=== PATIENT | male | born 1995 | race Caucasian/White ===

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

== ENCOUNTER 2023-01-06 23:54 | Outpatient (CLI) | payer BC | END 2023-01-06 23:59 | disposition EMS.NT | LOC: EMS 23:54 | DX: F41.9 Anxiety disorder, unspecified (principal) ==

== ENCOUNTER 2023-01-14 19:14 | Outpatient (CLI) | payer BC | END 2023-01-14 19:15 | disposition short-term general hospital (02) | LOC: EMS 19:14 | DX: R53.1 Weakness (principal); H53.9 Unspecified visual disturbance; R42 Dizziness and giddiness; R07.9 Chest pain, unspecified | CPT/HCPCS: A0425; A0429 ==

== ENCOUNTER 2023-03-07 18:30 | Outpatient (CLI) | payer BC | END 2023-03-07 18:31 | disposition EMS.NT | LOC: EMS 18:30 | DX: F41.9 Anxiety disorder, unspecified (principal) ==

== ENCOUNTER 2023-07-31 19:03 | Emergency (ER) | payer BC, MEDICAID ==
--- NOTE | 2023-07-31 19:25 | ED Physician Documentation ---
PD HPI CHEST PAIN - Stated complaint Stated Complaint: HEART PALPATIONS - Chief complaint Chief Complaint: Cardiac - History obtained from History obtained from: Patient - Additional information Additional information: He has a history of anxiety. Used to be on Prozac for same but lost to follow- up. He does have panic attacks and takes hydroxyzine on occasion for same. Today at work he was under a lot of stress and developed substernal chest pain with bilateral hand numbness and facial numbness and feeling of imminent doom. He does use alcohol heavily, about 1/5 of hard alcohol a day. PD PAST MEDICAL HISTORY - Past Surgical History Past Surgical History: Yes Ortho: Other - Present Medications Home Medications: Ambulatory Orders Medication Instructions Recorded Confirmed FLUoxetine [PROzac] 10 mg PO DAILY #60 cap 07/31/23 LORazepam [Ativan] 1 mg PO BID PRN #6 tablet 07/31/23 - Allergies Allergies/Adverse Reactions: Allergies Allergy/AdvReac Type Severity Reaction Status Date / Time No Known Drug Allergies Allergy Verified 07/31/23 19:10 - Social History Does the pt smoke?: No Smoking Status: Never smoker Does the pt drink ETOH?: No Does the pt have substance abuse?: No - Immunizations Immunizations are current?: Yes - POLST Patient has POLST: No PD ED PE NORMAL - Vitals Vital signs reviewed: Yes - General General: Alert and oriented X 3, Other (Appears quite anxious) - HEENT HEENT: PERRL, EOMI - Cardiac Cardiac: Other (Mild resting tachycardia without murmur, regular) - Respiratory Respiratory: No respiratory distress, Clear bilaterally - Abdomen Abdomen: Non tender - Neuro Neuro: Alert and oriented X 3, No motor deficit, No sensory deficit, Normal speech Results - Vitals Vitals: Vital Signs - 24 hr 07/31/23 07/31/23 19:06 19:30 Temperature 37 C Heart Rate 105 H 76 Respiratory 24 18 Rate Blood Pressure 139/76 H 131/77 H O2 Saturation 100 98 Oxygen O2 Source Room air - EKG (time done) 1927 EKG releavant findings:: EKG personally interpreted by author of this note. Relevant findings are: Rate: Rate (enter#) (93) Rhythm: NSR, LAE [place]: Normal Intervals: Normal [place] QRS: Normal Ischemia: ST elevation c/w repol. No: ST elevation c/w ischemia, ST depression, T wave inversion - Labs Labs: Laboratory Tests 07/31/23 07/31/23 19:25 19:25 WBC 8.4 RBC 4.71 Hgb 15.1 Hct 43.8 MCV 93.0 MCH 32.1 H MCHC 34.5 RDW 13.3 Plt Count 284 MPV 9.5 Neut # (Auto) 4.9 Lymph # (Auto) 2.6 [place] # (Auto) 0.8 Eos # (Auto) 0.1 Baso # (Auto) 0.0 Absolute Nucleated RBC 0.00 Nucleated RBC % 0.0 Sodium 138 Potassium 3.8 Chloride 105 Carbon Dioxide 22 Anion Gap 11.0 BUN 16 Creatinine 1.1 Estimated GFR (MDRD) 81 L Glucose 97 Calcium 10.3 Total Bilirubin 0.4 AST 24 ALT 22 Alkaline Phosphatase 61 Troponin I High Sens 3.7 Total Protein 7.5 Albumin 4.9 Globulin 2.6 Albumin/Globulin Ratio 1.9 PD Medical Decision Making - ED course ED course: 28-year-old gentleman was presents with chest pain and sense of impending doom with bilateral hand tingling. His examination is normal save a mild resting tachycardia. No neurologic findings. EKG was nonischemic. Troponin testing as well as other blood testing including CBC and CMP were unremarkable. He does drink 1/5 of hard liquor per day and was advised cessation or at least decreasing the amount. He does not seem interested in quitting alcohol and we will do a short course of lorazepam for anxiety/withdrawal and he would like to restart the Prozac. Also advised counseling. He understands as does family at the bedside, not to mix alcohol and benzodiazepines. He was feeling much better after dose of IV lorazepam here. Departure - Departure Disposition: 01 Home, Self Care Clinical Impression: Anxiety, Chest pain Condition: Good Record reviewed to determine appropriate education?: Yes Instructions: ED Panic Attack Prescriptions: LORazepam [Ativan] 1 mg PO BID PRN #6 tablet PRN Reason: anxiety or sleep FLUoxetine [PROzac] 10 mg PO DAILY #60 cap Comments: Diagnostic testing including EKG, troponin testing on your heart, and liver enzymes were normal/negative thankfully. Recommend you quit or at least taper back your drinking of alcohol significantly and I am prescribing a few doses of lorazepam which can be used for withdrawal symptoms or sleep for the next few nights but should Absolutely not be mixed with alcohol. Reasonable to also follow-up with your primary care physician and for counseling, as discussed [email or web address] would be a decent starting spot for counseling. I sent your prescriptions electronically to the [facility] in [place]. Forms: PCP List Discharge Date/Time: 07/31/23 20:21
[2023-07-31] MEDS: LORazepam 2 MG/ML VIAL IVP STA (19:34)
[2023-07-31 19:41] LABS: BASOPHILS % (AUTO) 0.4 %; EOSINOPHILS # (AUTO) 0.1 10^3/uL (0.0-0.7); EOSINOPHILS % (AUTO) 0.7 %; HCT - HEMATOCRIT 43.8 % (42.0-52.0); HGB - HEMOGLOBIN 15.1 g/dL (14.0-18.0); LYMPHOCYTES # (AUTO) 2.6 10^3/uL (1.5-3.5); LYMPHOCYTES % (AUTO) 31.3 %; MEAN CORPUSCULAR HEMOGLOBIN 32.1 pg (27.0-31.0); MEAN CORPUSCULAR HGB CONC 34.5 g/dL (32.0-36.0); MEAN PLATELET VOLUME 9.5 fL (7.4-11.4); MONOCYTES # (AUTO) 0.8 10^3/uL (0.0-1.0); MONOCYTES % (AUTO) 9.5 %; NEUTROPHILS # (AUTO) 4.9 10^3/uL (1.5-6.6); NEUTROPHILS % (AUTO) 57.9 %; PLT - PLATELET COUNT 284 10^3/uL (130-450); RED BLOOD COUNT 4.71 10^6/uL (4.70-6.10); RED CELL DISTRIBUTION WIDTH 13.3 % (12.0-15.0); WHITE BLOOD COUNT 8.4 x10^3/uL (4.8-10.8)
[2023-07-31 19:49] LABS: ALBUMIN 4.9 g/dL (3.2-5.5); ALBUMIN/GLOBULIN RATIO 1.9 (1.0-2.2); BILIRUBIN,TOTAL 0.4 mg/dL (0.2-1.0); CALCIUM 10.3 mg/dL (8.5-10.3); CREATININE 1.1 mg/dL (0.6-1.3); POTASSIUM 3.8 mmol/L (3.5-4.5); TOTAL PROTEIN 7.5 g/dL (6.4-8.9)
[2023-07-31 19:54] LABS: TROPONIN I HIGH SENSITIVITY 3.7 ng/L (2.3-19.7)
[2023-07-31 19:56] VITALS: BP 131/77; O2SAT 98
== END 2023-07-31 20:21 | disposition home or self-care (01) ==
LOC: ED 19:03
DX: F41.9 Anxiety disorder, unspecified (principal); R07.9 Chest pain, unspecified
CPT/HCPCS: 36415; 80053; 84484; 85025; 93005; 96374; 99284; 99285; J2060